=== PATIENT | female | born 1990 | race Hispanic/Latino ===

== ENCOUNTER 2018-06-13 17:45 | Emergency (ER) | payer OTHER ==
[2018-06-13 17:49] VITALS: RESP 16; O2SAT 100
[2018-06-13] MEDS ORDERED: Sodium Chloride 0.9% 1,000 ML IV SCH (18:45)
[2018-06-13 18:56] LABS: BASO # 0.1 K/uL (0.0-0.2); BASO % 0.6 % (0.0-2.0); EOS # 0.1 K/uL (0.0-0.7); EOS % 0.5 % (0.0-4.0); HEMOGLOBIN 11.8 g/dL (12.0-16.0); LYMPH # 2.6 K/uL (1.0-4.3); LYMPH % 17.9 % (20.0-40.0); MEAN CELL VOLUME 94.3 fl (81.0-99.0); MEAN CORPUSCULAR HGB CONC 32.9 g/dL (33.0-37.0); MONO # 1.1 K/uL (0.0-0.8); MONO % 7.7 % (0.0-10.0); NEUT # 10.7 K/uL (1.8-7.0); NEUT % 73.3 % (50.0-75.0); NRBC % 0.1 % (0.0-0.0); RBC 3.79 Mil/uL (3.80-5.20); RED CELL DISTRIBUTION WIDTH 13.7 % (11.5-14.5); WHITE BLOOD COUNT 14.6 K/uL (4.8-10.8)
[2018-06-13 19:08] LABS: SQUAMOUS EPITHIAL 6 /hpf (0-5); URINE BACTERIA RARE (<OCC); URINE BILIRUBIN NEGATIVE (NEGATIVE); URINE BLOOD SMALL (NEGATIVE); URINE CLARITY SLIGHTY-CLOUDY (Clear); URINE COLOR YELLOW (YELLOW); URINE GLUCOSE (UA) NEG (Normal); URINE LEUKOCYTE ESTERASE TRACE Leu/uL (Negative); URINE PROTEIN NEGATIVE (NEGATIVE); URINE UROBILINOGEN 0.2-1.0 mg/dL (0.2-1.0)
[2018-06-13 19:10] LABS: BLOOD UREA NITROGEN 52 mg/dl (7-17); CALCIUM 8.8 mg/dL (8.4-10.2); LIPASE 164 U/L (23-300)
[2018-06-13 19:15] LABS: ALB/GLOB RATIO 1.2 (1.0-2.1); ALBUMIN 4.2 g/dL (3.5-5.0); ALT/SGPT 31 U/L (9-52); AST/SGOT 54 U/L (14-36)
[2018-06-13 19:19] LABS: GFR NON-AFRICAN AMERICAN > 60
--- NOTE | 2018-06-13 19:45 | ED PDOC ---
HPI: Abdomen Time Seen by Provider: 06/13/18 18:28 Chief Complaint (Nursing): GI Problem Chief Complaint (Provider): Vomiting History Per: Patient History/Exam Limitations: no limitations Onset/Duration Of Symptoms: Hrs (4-5) Outside of [place] travel?: No Current Symptoms Are (Timing): Better Context: Food Severity: Mild Location Of Pain/Discomfort: Other (pt experiencing no abdominal pain, no naus ea) Associated Symptoms: Vomiting Last Bowel Movement: Today Past Medical History Reviewed: Historical Data, Nursing Documentation, Vital Signs Vital Signs: Last Vital Signs Temp 98.4 F 06/13/18 17:47 Pulse 89 06/13/18 17:47 Resp 16 06/13/18 17:47 BP 116/71 06/13/18 17:47 Pulse Ox 100 06/13/18 17:47 - Surgical History Surgical History: Appendectomy - Family History Family History: States: Unknown Family Hx - Immunization History Hx Tetanus Toxoid Vaccination: No Hx Influenza Vaccination: No Hx Pneumococcal Vaccination: No - Home Medications Home Medications: Ambulatory Orders Medication Instructions Recorded Metronidazole 500 mg PO TID #42 tablet 06/13/18 - Allergies Allergies/Adverse Reactions: Allergies Allergy/AdvReac Type Severity Reaction Status Date / Time No Known Allergies Allergy Verified 06/13/18 17:46 Review of Systems Constitutional: Negative for: Fever, Chills, Sweats, Weakness, Malaise, Weight loss Cardiovascular: Negative for: Chest Pain Respiratory: Negative for: Cough, Shortness of Breath Gastrointestinal: Positive for: Vomiting. Negative for: Nausea, Abdominal Pain, Diarrhea, Constipation Genitourinary Female: Negative for: Dysuria Physical Exam - Reviewed Nursing Documentation Reviewed: Yes Vital Signs Reviewed: Yes - Physical Exam Appears: Positive for: Well, Non-toxic, No Acute Distress Head Exam: Positive for: ATRAUMATIC, NORMAL INSPECTION Skin: Positive for: Normal Color, Warm, Dry Neck: Positive for: Normal, Painless ROM, Supple. Negative for: Decreased ROM Cardiovascular/Chest: Positive for: Regular Rate, Rhythm, Chest Non Tender. Neg ative for: Edema, Gallop, Murmur, Bradycardia, Tachycardia Respiratory: Positive for: Normal Breath Sounds. Negative for: Accessory Muscle Use, Crackles, Rales, Rhonchi, Stridor, Wheezing, Respiratory Distress, Plerual Rub Pulses-Carotid (L): 2+ Pulses-Carotid (R): 2+ Pulses-Radial (L): 2+ Pulses-Radial (R): 2+ Gastrointestinal/Abdominal: Positive for: Normal Exam, Bowel Sounds, Soft. Negative for: Tenderness, Distended, Guarding Back: Positive for: Normal Inspection. Negative for: L CVA Tenderness, R CVA Tenderness Neurologic/Psych: Positive for: Alert, Mood/Affect. Negative for: Aphasia - Laboratory Results Result Diagrams: 06/13/18 18:51 06/13/18 18:51 Urine POC: Negative Urine dip results: Negative for: Leukocyte Esterase, Blood, Nitrate, Ketones, Glucose, Bilirubin, Protein - ECG O2 Sat by Pulse Oximetry: 100 Medical Decision Making Medical Decision Making: Pt admits to both a night of heavy driniking (ETOH) last night as well as consuming recooked rice that had been in her refrigerator for several days. Pt is asx Pt has passed a PO challenge and is resting comfortably requesting discharge PO [place] FU with PMD on Friday Disposition - Clinical Impression Clinical Impression: Food contamination, Gastritis - Patient ED Disposition Is Patient to be Admitted: No Doctor Will See Patient In The: Office Counseled Patient/Family Regarding: Studies Performed, Diagnosis, Need For Followup - Disposition Disposition: Routine/Home Disposition Time: 19:48 Condition: STABLE Prescriptions: Metronidazole 500 mg PO TID #42 tablet Instructions: Food Poisoning, Gastritis, Gastritis (DC)
[2018-06-13 20:07] VITALS: BP 121/73; PULSE 86; TEMP 98.1
== END 2018-06-13 20:09 | disposition home or self-care (01) ==
LOC: H.ER 17:45
DX: K29.70 Gastritis, unspecified, without bleeding (principal); A05.9 Bacterial foodborne intoxication, unspecified
CPT/HCPCS: 80053; 81003; 83690; 85025; 96360; 99283; J7030